=== PATIENT | female | born 1965 | race Caucasian/White ===

== ENCOUNTER 2018-05-04 23:09 | Emergency (ER) | payer MEDICAID, OTHER ==
[~2018-05-04] VITALS: Ht 157.5 cm; Wt 72.6 kg
--- NOTE | 2018-05-04 23:20 | NUR ---
PT CAME IN FOR EVAL S/P GLF, VS STABLE, PLACED ON ER BED 5, SEEN BY ER MD FORREST, AWAITING ORDERS.
--- NOTE | 2018-05-04 23:35 | NUR ---
PT TAKEN TO CT AND XR SACRAL AREA.
--- NOTE | 2018-05-05 00:34 | NUR ---
Patient discharged to home in stable condition. Rx given, request for ct and xr sacral provided, vs stable, denies any pain or discomfort. Written and verbal after care instructions given. Patient verbalizes understanding of instruction.
[2018-05-05 00:36] VITALS: BP 121/74
== END 2018-05-05 00:39 | disposition home or self-care (01) ==
LOC: ER 23:14
DX: S09.8XXA Other specified injuries of head, initial encounter (principal); M53.3 Sacrococcygeal disorders, not elsewhere classified; W07.XXXA Fall from chair, initial encounter; Y93.89 Activity, other specified; Y92.89 Other specified places as the place of occurrence of the external cause; Y99.8 Other external cause status
CPT/HCPCS: 70450; 72220; 99284; A4606; Z7610

== ENCOUNTER 2020-01-02 22:43 | Emergency (ER) | payer MEDICAID ==
[~2020-01-02] VITALS: Ht 165.1 cm; Wt 72.6 kg
--- NOTE | 2020-01-02 23:13 | NUR ---
DR FORREST AT BEDSIDE
--- NOTE | 2020-01-02 23:25 | NUR ---
XRAY AT BEDSIDE
--- NOTE | 2020-01-03 00:09 | NUR ---
ULTRASOUND AT BEDSIDE
--- NOTE | 2020-01-03 01:04 | NUR ---
Patient discharged to home in stable condition. Written and verbal after care instructions given. Patient verbalizes understanding of instruction and RX. Pt ambulated out of E.D. Denies pain
[2020-01-03 01:20] VITALS: BP 127/75
== END 2020-01-03 01:20 | disposition home or self-care (01) ==
LOC: ER 22:43
DX: L03.115 Cellulitis of right lower limb (principal); I10 Essential (primary) hypertension
CPT/HCPCS: 73610-TC; 93971-TC

== ENCOUNTER 2024-06-20 16:10 | Emergency (ER) | payer MEDICAID, OTHER ==
[~2024-06-20] VITALS: Ht 162.6 cm; Wt 72.6 kg
[2024-06-20 16:22] VITALS: BP 128/76; TEMP 98.3
[2024-06-20 17:11] VITALS: O2SAT 98
== END 2024-06-20 17:12 | disposition home or self-care (01) ==
LOC: ER 16:18
DX: H65.93 Unspecified nonsuppurative otitis media, bilateral (principal); H91.93 Unspecified hearing loss, bilateral; I10 Essential (primary) hypertension